=== PATIENT | female | born 1955 | race Caucasian/White ===

== ENCOUNTER 2016-10-18 09:41 | Emergency (ER) | payer BC ==
[2016-10-18] MEDS ORDERED: KETOROLAC TROMETHAMINE 60 MG/2 ML VIAL IM ONE ×2 (11:23→11:29)
--- NOTE | 2016-10-18 11:28 | ERNOTE ---
Back Pain ER HPI Date of Service: 10/18/16 Time Seen by Provider: 10/18/16 11:16 Source: patient Exam Limitations: no limitations Immunizations: IMMUNIZATION HX History of Influenza Vaccine Yes Hx Pneumococcal Vaccination No Allergies/Adverse Reactions: Allergies No Known Allergies Allergy (Unverified 10/18/16 10:41) Home Medications: HOME MEDICATIONS Alendronate Sodium [Fosamax] 70 mg PO Q7D 06/01/15 [Last Taken Unknown] Citalopram Hydrobromide [Citalopram HBr] 20 mg PO DAILY 06/01/15 [Last Taken Unknown] HYDROcodone/ACETAMINOPHEN [[place] 5-325] 1 tab PO Q6H PRN 06/01/15 [Last Taken Unknown] Levothyroxine Sodium [Synthroid] 137 mcg PO DAILY 06/01/15 [Last Taken Unknown] Simvastatin [Zocor] 40 mg PO HS 06/01/15 [Last Taken Unknown] Aspirin [Aspirin Enteric Coated] 81 mg PO DAILY 12/15/15 [Last Taken Unknown] Cyclobenzaprine HCl [Flexeril] 10 mg PO TID PRN #30 tab 10/18/16 [Last Taken Unknown] Naproxen [Naprosyn] 500 mg PO BID PRN #60 tab 10/18/16 [Last Taken Unknown] Narrative: Pt. comes in with c/o low back pain that pt. states that started a week ago without any injury noted. Pt. denies any SOB, CP, NVD, numbness, tingling, or incontinence of bowel or bladder. Pt. denies any alleviating factors despite taking Ibuprofen. Pt. states that movement exacerbates the symptoms. Review of Systems - Review of Systems Constitutional: Present: no symptoms reported. Absent: recent illness, fever, chills, weakness, fatigue, malaise EYE: Present: no symptoms reported ENT: Present: no symptoms reported Respiratory: Present: no symptoms reported. Absent: shortness of breath, cough , wheezing Cardiology: Present: no symptoms reported. Absent: chest pain, palpitations, edema Gastrointestinal/Abdominal: Present: no symptoms reported Genitourinary: Present: no symptoms reported Musculoskeletal: Present: back pain - low Neurological: Present: no symptoms reported. Absent: anxiety, headache, dizziness/light-headedness, numbness, tingling All Other Systems: All systems neg except as marked - Patient's Past Medical History Patient History - Medical: Anxiety, Depression, Hypothyroidism Patient History - Cardiac/Respiratory: Hyperlipidemia, Pulmonary Embolism Patient History - Cancer: No Hx of Cancer Patient History - Surgical Procedures: Cholecystectomy, Hysterectomy, Total Knee Replacement, Tubal Ligation, T & A, Other Patient History - Other: None - Family History Father Family History - Medical: Family History - Cardiac/Respiratory: Coronary Heart Disease - Social History Living Situations: spouse Abuse History: No History of abuse Psych History: Hx of Anxiety, Hx of Depression, Current tx/ever been on anti- depressants or anti-anxiety meds Smoking Status: Current every day smoker Have you smoked in the past 12 months: Yes Alcohol Use: none Drug Use: none - Immunizations Hx Pneumococcal Vaccination: No History of Influenza Vaccine: Yes Physical Exam - Physical Exam General Appearance: Present: wd/wn, alert, no apparent distress Eye Exam: Normal inspection: bilateral, PERRL: bilateral, EOMI: bilateral Ears, Nose, Throat: Present: normal ENT inspection, normal pharynx Neck: Present: normal inspection, nontender. Absent: lymphadenopathy (R), lymphadenopathy (L) Respiratory: Present: no respiratory distress, normal breath sounds, no accessory muscle use, chest nontender, lungs clear Cardiovascular/Chest: Present: regular rate, rhythm, no murmur, normal peripheral pulses Gastrointestinal/Abdominal: Present: normal bowel sounds, nontender, nondistended, soft, no organomegaly Back Exam: Present: no CVA tenderness, vertebral tenderness - L3-L4, decreased range of motion Extremity Exam: Present: normal inspection, normal except -, non-tender, normal range of motion, no edema Neurological Exam: Present: alert, oriented, normal mood/affect, no motor/ sensory deficits Skin Exam: Present: normal color, warm/dry. Absent: pallor, skin rash ED Progress - Vital Signs Patient's Vital Signs:: I have reviewed the patient's vital signs. Vital Signs: Vital Signs 10/18/16 09:51 Temperature 37.2 C Pulse Rate 66 Respiratory 14 Rate Blood Pressure 130/78 O2 Sat by Pulse 98 Oximetry - X-Ray X-Ray #1 X-Ray: lumbosacral Interpretation: Reviewed by me X-ray Comments: No acute. Scoliotic change, narrowed L4/5 disc space with spurring mid to lower lumbar with posterior spurring. - Progress/Reassessment Chief Complaint: Back Pain Progress:: Improved Departure Clinical Impression: Degenerative disc disease Qualifiers: Spinal region: lumbar Qualified Code(s): M51.36 - Other intervertebral disc degeneration, lumbar region - Departure Disposition: Home self-care Condition: Good Instructions: Degenerative Disk Disease Additional Instructions: Please follow up with Dr Gibbons at [phone] as planned. Do not take muscle relaxers if driving. Referrals: Karla Borrero MD [Primary Care Provider] - Prescriptions: Cyclobenzaprine HCl [Flexeril] 10 mg PO TID PRN #30 tab PRN Reason: MUSCLE SPASMS Naproxen [Naprosyn] 500 mg PO BID PRN #60 tab PRN Reason: Pain
[2016-10-18 11:48] VITALS: BP 140/68
--- OUTSIDE RECORDS SUMMARY | 2016-10-18 11:53 | XMS REPORT | Continuity of Care Document ---
:1955 Author Organization [facility] [place] [address] Care Team Providers Name Role Phone Carmen Borrero Primary Care Provider [phone] Source Comments This disclosure is being made pursuant to the First30Days program and maynot contain all information available regarding this patient.[facility] Active Allergies and Adverse Reactions No Known Allergies Current Medications Be aware that medications may not be up to date as of this document. Alwaysverify current medications with the patient. Prescription Sig. Disp. Refills Start Date End Date Status alendronate (FOSAMAX) Take 1 tablet by 02/14/2016 Active 70 MG tablet mouth once a week. ketoconazole (NIZORAL) Apply to rash 3 11/26/2015 Active 2 % cream bid citalopram (CELEXA) 20 Take 20 mg by Active MG tablet mouth daily. simvastatin (ZOCOR) 40 Take 40 mg by Active MG tablet mouth nightly. aspirin 81 MG tablet Take 81 mg by Active mouth daily. sulfaSALAzine Take 2 tablets 120 tablet 11 04/27/2016 Active (AZULFIDINE) 500 MG by mouth 2 (two) tablet times daily. Active Problems No known active problems Most Recent Encounters Date Type Specialty Providers Description 10/16/2016 Data Import Social History Tobacco Use Types Packs/Day Years Used Date Current Some Day Smoker Cigarettes Smokeless Tobacco: Never Used Tobacco Cessation:Ready to Quit: Yes; Counseling Given: Yes Comments: Last Filed Vital Signs Vital Sign Reading Time Taken Blood Pressure 123/74 04/12/2016 3:44 PM CDT Pulse 90 04/12/2016 3:44 PM CDT Temperature - - Respiratory Rate - - Height - - Weight 90.719 kg (200 lb) 04/12/2016 3:44 PM CDT Body Mass Index - - Oxygen Saturation - - Plan of Care Health Maintenance Due Date Last Done Comments Hepatitis C Screening 1973 Pneumococcal Medium Risk 19-64 yo (1 of 1 - PPSV23) 1974 Tetanus/Pertussis (1 - Tdap) 1974 Pap Smear 01/31/1976 Colonoscopy 2005 Mammogram 2005 Well Adult Visit 2005 Zoster Vaccine 60+ 2015 Influenza Immunization (#1) 2016 Results from Last 3 Months Not on file
--- OUTSIDE RECORDS SUMMARY | 2016-10-18 11:53 | XMS REPORT | Continuity of Care Document ---
:1955 Author Organization [facility] ([facility]) Address [address] [place] [address] Phone [phone] Care Team Providers Name Role Phone Karla Borrero Primary Care Provider [phone] Source Comments This disclosure is being made pursuant to the Care Everywhere program, applicable federal and state laws, and may not contain all informaitonavailable regarding this patient.[facility] ([facility]) Active Allergies and Adverse Reactions No Known Allergies Current Medications Prescription Sig. Disp. Refills Start Date End Date Status SYNTHROID 137 mcg Take by mouth 05/18/2015 Active tablet every morning before breakfast alendronate 70 mg Take by mouth 05/10/2015 Active tablet every week On Sunday citalopram 20 mg tablet Take by mouth 05/24/2015 Active daily simvastatin 40 mg Take by mouth 05/24/2015 Active tablet every evening diclofenac 75 mg EC Take 75 mg by Active tablet mouth 2 times daily. cholecalciferol Take 3 tablets 90 tablet 5 06/20/2016 Active (VITAMIN D3) 1,000 unit (3,000 Units tablet total) by mouth daily. Active Problems Problem Noted Date PONV (postoperative nausea and vomiting) 07/28/2015 Nephrolithiasis 07/02/2015 Lumbago 12/16/2003 Social History Tobacco Use Types Packs/Day Years Used Date Former Smoker Cigarettes 0.15 20 Quit: 03/23/2014 Smokeless Tobacco: Never Used Tobacco Cessation:Counseling Given: Yes Comments: Alcohol Use Drinks/Week oz/Week Comments No Last Filed Vital Signs Vital Sign Reading Time Taken Blood Pressure 115/67 06/13/2016 3:12 PM SCREEN EXAMINER Pulse 88 06/13/2016 3:12 PM SCREEN EXAMINER Temperature 36.7 C (98.1 F) 06/02/2016 8:37 AM SCREEN EXAMINER Respiratory Rate 16 06/02/2016 8:37 AM SCREEN EXAMINER Height 1.702 m (5' 7.01") 06/02/2016 8:37 AM SCREEN EXAMINER Weight 89.1 kg (196 lb 6.9 oz) 06/13/2016 3:12 PM SCREEN EXAMINER Body Mass Index 30.76 06/13/2016 3:12 PM SCREEN EXAMINER Oxygen Saturation 98% 06/02/2016 8:37 AM SCREEN EXAMINER Plan of Care Health Maintenance Due Date Last Done Comments HCV Screening 1955 Hepatitis B Vaccine (1 of 3 - Primary Series) 1955 Tdap Vaccine 1966 Lipid Disorder Screening 1973 Td Vaccine 1973 Cervical Cancer Screening 1985 Mammogram 1995 Colonoscopy 01/29/2005 Zoster Vaccine 2015 Influenza Vaccine: Seasonal (#1) 02/21/2016 Results from Last 3 Months Not on file
== END 2016-10-18 11:51 | disposition home or self-care (01) ==
LOC: ER 09:41
DX: M51.36 Other intervertebral disc degeneration, lumbar region (principal); F17.210 Nicotine dependence, cigarettes, uncomplicated